=== PATIENT | female | born 1965 | race Caucasian/White ===

== ENCOUNTER 2021-05-30 22:03 | Inpatient (IN) | payer OTHER ==
[~2021-05-30] VITALS: Ht 160 cm; Wt 106.4 kg
[~2021-05-30 22:03] MED LIST: AMARYL2 MG PO; AUGMENTIN 875-1 EACH PO; BENTYL10 MG PO; CIPRO500 MG PO; GLUCOPHAGE850 MG PO; LEVEMIR VI100 UNITS/ SC; LIPITOR 10MG TA10 MG PO; LISINOPRIL-HCT1 EAC2 PO; METFORMIN HCL500 MG PO; METFORMIN PO; METRONIDAZOLE500 MG PO; NOVOLIN 70100 UNIT/1 SC; PRINIVIL10 MG PO; PROTONIX 40MG T40 MG PO; ZOCOR20 MG PO
[2021-05-30 22:41] LABS: BASOPHIL 0.3 % (0-2); EOSINOPHIL 1.1 % (0-5); HCT 44.3 % (37.0-47.0); HGB 13.9 g/dl (12.5-16.0); LYMPHOCYTE 26.7 % (15-48); MCHC 31.4 g/dL (32.0-36.0); MCV 82.8 fL (78.0-100.0); MONOCYTE 8.6 % (0-12); NRBC 0; PLT 357 K/uL (150-400); RBC 5.35 M/uL (4.20-5.40); RDW 15.3 % (11.5-14.0); WBC 17.7 K/uL (4.0-10.5)
[2021-05-30 22:43] LABS: BILIRUBIN NEGATIVE (NEGATIVE); BLOOD NEGATIVE Ery/uL (NEGATIVE); CLARITY CLEAR (CLEAR); COLOR YELLOW (YELLOW); GLUCOSE (U) NORMAL (NORMAL); LEUKOCYTES 1+ Leu/uL (NEGATIVE); NITRITE NEGATIVE (NEGATIVE); PROTEIN NEGATIVE (NEGATIVE); UROBILINOGEN 0.2 mg/dL (0.2-1.0)
[2021-05-30 22:58] LABS: ALBUMIN 3.8 g/dL (3.4-5.0); BILIRUBIN - TOTAL 0.4 mg/dL (0.2-1.0); BUN/CREAT RATIO (CALC) 15.4 RATIO; CREATININE 0.65 mg/dL (0.51-0.95); GLOBULIN (CALCULATION) 4.2 g/dL; POTASSIUM 3.5 mmol/L (3.5-5.1)
[2021-05-30 22:59] LABS: BACTERIA TRACE
[2021-05-31 01:43] LABS: LACTIC ACID 2.1 mmol/L (0.4-1.9)
[2021-05-31] MEDS ORDERED: GABAPENTIN800 MG PO (03:52)
[2021-05-31] MEDS ORDERED: AMARYL2 MG PO (03:53)
[2021-05-31] MEDS ORDERED: NORVASC 5MG TABL5 MG PO (03:56)
[2021-05-31] MEDS ORDERED: HUMULIN R100 UNIT/1 SQ (03:57)
[2021-05-31] MEDS ORDERED: ROSUVASTATIN CA20 MG PO (03:58)
[2021-06-01 06:10] LABS: BASOPHIL 0.4 % (0-2); EOSINOPHIL 2.4 % (0-5); HCT 38.6 % (37.0-47.0); HGB 11.8 g/dl (12.5-16.0); LYMPHOCYTE 39.6 % (15-48); MCH 26.2 pg (25.0-31.0); MCHC 30.6 g/dL (32.0-36.0); MCV 85.6 fL (78.0-100.0); MPV 10.8 fL (6.0-9.5); NEUTROPHIL 48.3 % (41-80); NRBC 0; PLT 286 K/uL (150-400); RBC 4.51 M/uL (4.20-5.40); WBC 7.8 K/uL (4.0-10.5)
[2021-06-01 06:23] LABS: BILIRUBIN - TOTAL 0.3 mg/dL (0.2-1.0); BUN/CREAT RATIO (CALC) 13.6 RATIO; CREATININE 0.59 mg/dL (0.51-0.95); GLOBULIN (CALCULATION) 3.8 g/dL; MAGNESIUM 1.9 mg/dL (1.8-2.4); TOTAL PROTEIN 6.8 g/dL (6.4-8.2)
[2021-06-02 05:54] LABS: BASOPHIL 0.5 % (0-2); EOSINOPHIL 2.9 % (0-5); HCT 38.7 % (37.0-47.0); HGB 11.9 g/dl (12.5-16.0); LYMPHOCYTE 37.3 % (15-48); MCH 26.3 pg (25.0-31.0); MCHC 30.7 g/dL (32.0-36.0); MCV 85.4 fL (78.0-100.0); MPV 10.7 fL (6.0-9.5); NEUTROPHIL 51.1 % (41-80); NRBC 0; PLT 275 K/uL (150-400); RBC 4.53 M/uL (4.20-5.40); RDW 15.2 % (11.5-14.0); WBC 8.2 K/uL (4.0-10.5)
[2021-06-02 06:15] LABS: BILIRUBIN - TOTAL 0.3 mg/dL (0.2-1.0); BUN/CREAT RATIO (CALC) 12.9 RATIO; CREATININE 0.7 mg/dL (0.51-0.95); GLOBULIN (CALCULATION) 3.3 g/dL; MAGNESIUM 1.9 mg/dL (1.8-2.4); PHOSPHORUS 3.3 mg/dL (2.6-4.7); POTASSIUM 4.1 mmol/L (3.5-5.1); TOTAL PROTEIN 6.3 g/dL (6.4-8.2)
[2021-06-03] MEDS ORDERED: AUGMENTIN 875-1 EACH PO (09:29)
== END 2021-06-03 11:26 | disposition home or self-care (01) | DRG 872 ==
LOC: FER 22:03 → FMS 05-31 02:21
PROVIDERS: Emergency Medicine; Nurse Practitioner; ADMIT Internal Medicine
DX: A41.9 Sepsis, unspecified organism (principal); K57.32 Diverticulitis of large intestine without perforation or abscess without bleeding; N30.00 Acute cystitis without hematuria; Z20.822 Contact with and (suspected) exposure to COVID-19; Z66 Do not resuscitate; E11.9 Type 2 diabetes mellitus without complications; I10 Essential (primary) hypertension; K21.9 Gastro-esophageal reflux disease without esophagitis; E78.5 Hyperlipidemia, unspecified; K76.0 Fatty (change of) liver, not elsewhere classified; K74.60 Unspecified cirrhosis of liver; R16.1 Splenomegaly, not elsewhere classified; Z90.49 Acquired absence of other specified parts of digestive tract; Z98.51 Tubal ligation status; Z98.890 Other specified postprocedural states; Z79.84 Long term (current) use of oral hypoglycemic drugs; Z79.899 Other long term (current) drug therapy
CPT/HCPCS: 36415; 80053; 81001; 82962; 83605; 83690; 83735; 84100; 84145; 85025; 87040; 87088; 94010; 94760; J0697; J1170; J1650; J1885; J2405; J2543; J3480; J7030; J7050; J7120; Q9967; U0002